=== PATIENT | male | born 1975 ===

== ENCOUNTER 2019-11-26 10:41 | Inpatient (IN) ==
[2019-11-26] MEDS ORDERED: Ondansetron 4 MG/2 ML VIAL IVP PRN (13:40)
[2019-11-26] MEDS ORDERED: Naloxone 0.4 MG/ML INJ IVP PRN ×2 (13:40→20:59)
[2019-11-26] MEDS ORDERED: Ringers Solution, Lactated 1,000 ML IVC SCH (13:45)
[2019-11-26] MEDS ORDERED: *HR* LORazepam 2 MG/ML VIAL IVP PRN ×6 (14:18→20:59)
[2019-11-26] MEDS ORDERED: 0.9 % Sodium Chloride 1,000 ML IVC SCH (14:30)
[2019-11-26] MEDS ORDERED: Thiamine (B-1) 100 MG, Folic Acid 1 MG, MVI, adult with vitamin K 10 ML in 0.9 % Sodi... IVPB SCH (15:00)
[2019-11-26] MEDS ORDERED: Piperacillin/Tazobactam 3.375 GM in 0.9 % Sodium Chloride Mini Bag 100 ML IVPB SCH (16:00)
[2019-11-26] MEDS ORDERED: Morphine Sulfate 2 MG/ML SYRINGE IVP ONE ×3 (16:30→22:15)
[2019-11-26] MEDS ORDERED: *HR* OxyCODONE Immed Rel 5 MG TABLET PO PRN ×2 (17:28→20:59)
[2019-11-26] MEDS ORDERED: Ondansetron 4 MG/2 ML VIAL IVP ONE ×2 (17:28→20:59)
[2019-11-26] MEDS ORDERED: *HR* Meperidine 25 MG/ML SYRINGE IVP PRN ×2 (17:28→20:59)
[2019-11-26] MEDS ORDERED: *HR* Promethazine 25 MG/ML VIAL IVP PRN ×2 (17:28→20:59)
[2019-11-26] MEDS ORDERED: *HR* HYDROmorphone PF 0.5 MG/0.5 ML SYRINGE IVP PRN ×2 (17:28→20:59)
[2019-11-26] MEDS ORDERED: Acetaminophen IV 1,000 MG/100 ML BAG ONE (17:33)
[2019-11-26] MEDS ORDERED: *HR* Rocuronium Bromide 50 MG/5 ML VIAL ONE (17:41)
[2019-11-26] MEDS ORDERED: Dexamethasone 4 MG/ML VIAL ONE (17:41)
[2019-11-26] MEDS ORDERED: Lidocaine HCL 4 ML Topical Solution (Laryng-O-Jet Kit Sterile Pak) TP ONE (17:41)
[2019-11-26] MEDS ORDERED: *HR* FentaNYL (PF) 100 MCG/2 ML VIAL ONE (17:41)
[2019-11-26] MEDS ORDERED: *HR* Succinylcholine 200 MG/10 ML VIAL IVP ONE (17:41)
[2019-11-26] MEDS ORDERED: Ondansetron 4 MG/2 ML VIAL ONE (17:41)
[2019-11-26] MEDS ORDERED: *HR* Midazolam HCl 2 MG/2 ML VIAL ONE (17:41)
[2019-11-26] MEDS ORDERED: Lidocaine -MPF 2% 2 ML VIAL ONE (17:41)
[2019-11-26] MEDS ORDERED: *HR* Propofol 200 MG/20 ML VIAL IVP ONE (17:42)
[2019-11-26] MEDS ORDERED: *HR* HYDROMORPHONE 2 MG/ML VIAL ONE (18:47)
[2019-11-26 21:26] LABS: Basophils # 0.1 K/mcL (0.0-0.2); Basophils % 0.3 %; Eosinophils # 0.1 K/mcL (0.0-0.6); Eosinophils % 0.6 %; Hematocrit 39.1 % (37.5-50.1); Hemoglobin 13.1 g/dL (12.9-16.9); Immature Granulocytes % 1.7 % (0-4); Lymphocytes # 0.7 K/mcL (0.6-4.6); Lymphocytes % 3.8 %; Mean Corpuscular HGB Conc 33.5 g/dL (31.6-35.5); Mean Corpuscular Hemoglobin 31.6 pg (28.0-33.3); Mean Corpuscular Volume 94.4 fL (83.0-100.0); Mean Platelet Volume 10.6 fL (9.4-12.4); Monocytes # 0.9 K/mcL (0.0-1.3); Monocytes % 4.7 %; Platelet Count 160 K/mcL (140-400); Red Blood Count 4.14 M/mcL (4.19-5.50); Red Cell Distribution Width 12.9 % (11.5-14.5); Segmented Neutrophils % 88.9 %; White Blood Count 18.4 K/mcL (4.3-11.1)
[2019-11-26 21:28] LABS: INR 1.2; Prothrombin Time 13.9 Seconds (9.4-12.1)
[2019-11-26 21:31] LABS: Neutrophils # 16.4 K/mcL (1.6-8.9)
[2019-11-26 21:36] LABS: BUN/Creatinine Ratio 11 (6-26); Blood Urea Nitrogen 11 mg/dL (6-20); Calcium 8.2 mg/dL (8.6-10.3); Carbon Dioxide 18 mEq/L (23-29); Chloride 103 mEq/L (98-107); Glucose 117 mg/dL (70-105); Osmolality,Calculated 274 (280-300); Sodium 132 mEq/L (136-145); eGFR For African Americans > 60 (> 60); eGFR For Non-African Americans > 60 (> 60)
[2019-11-26] MEDS: Budesonide/Formoterol 160/4.5 1 PUFF INH IH SCH (21:56)
[2019-11-26] MEDS ORDERED: Budesonide/Formoterol 160/4.5 1 PUFF INH IH SCH (22:00)
[2019-11-26] MEDS: 0.9 % Sodium Chloride 1,000 ML IVC SCH (22:10)
[2019-11-26] MEDS: Acetaminophen IV 1,000 MG/100 ML BAG IVPB SCH (23:55)
[2019-11-26] MEDS: Piperacillin/Tazobactam 3.375 GM in 0.9 % Sodium Chloride Mini Bag 100 ML IVPB SCH (23:55)
[2019-11-27] MEDS ORDERED: Acetaminophen IV 1,000 MG/100 ML BAG IVPB SCH
[2019-11-27 05:55] LABS: Basophils % 0.1 %; Eosinophils % 0.1 %; Hematocrit 35.5 % (37.5-50.1); Hemoglobin 11.8 g/dL (12.9-16.9); Lymphocytes # 0.6 K/mcL (0.6-4.6); Lymphocytes % 3.6 %; Mean Corpuscular HGB Conc 33.2 g/dL (31.6-35.5); Mean Corpuscular Hemoglobin 31.4 pg (28.0-33.3); Mean Corpuscular Volume 94.4 fL (83.0-100.0); Mean Platelet Volume 10.7 fL (9.4-12.4); Monocytes # 0.7 K/mcL (0.0-1.3); Monocytes % 3.9 %; Neutrophils # 15.9 K/mcL (1.6-8.9); Platelet Count 165 K/mcL (140-400); Red Blood Count 3.76 M/mcL (4.19-5.50); Red Cell Distribution Width 12.9 % (11.5-14.5); Segmented Neutrophils % 91.3 %; White Blood Count 17.4 K/mcL (4.3-11.1)
[2019-11-27] MEDS ORDERED: *HR* Enoxaparin 40 MG/0.4 ML SYRINGE SQ SCH ×2 (06:00)
[2019-11-27] MEDS: Acetaminophen IV 1,000 MG/100 ML BAG IVPB SCH ×3 (06:03→17:51)
[2019-11-27] MEDS: 0.9 % Sodium Chloride 1,000 ML IVC SCH (06:03)
[2019-11-27 06:15] LABS: Alanine Aminotransferase 46 Units/L (7-52); Albumin 3.1 g/dL (3.5-5.7); Albumin/Globulin Ratio 1.1 (1.1-2.2); Alkaline Phosphatase 63 Units/L (34-104); Aspartate Amino Transferase 47 Units/L (13-39); BUN/Creatinine Ratio 14 (6-26); Bilirubin,Total 1.9 mg/dL (0.3-1.0); Blood Urea Nitrogen 12 mg/dL (6-20); Calcium 8.5 mg/dL (8.6-10.3); Carbon Dioxide 21 mEq/L (23-29); Chloride 103 mEq/L (98-107); Globulin 2.9 g/dL (2.4-3.5); Glucose 139 mg/dL (70-105); Osmolality,Calculated 276 (280-300); Potassium 3.7 mEq/L (3.5-5.1); Sodium 132 mEq/L (136-145); eGFR For African Americans > 60 (> 60); eGFR For Non-African Americans > 60 (> 60)
[2019-11-27] MEDS: allopurinoL 300 MG TABLET PO SCH (08:16)
[2019-11-27] MEDS: Piperacillin/Tazobactam 3.375 GM in 0.9 % Sodium Chloride Mini Bag 100 ML IVPB SCH ×3 (08:17→23:45)
[2019-11-27] MEDS ORDERED: allopurinoL 300 MG TABLET PO SCH (09:00)
[2019-11-27] MEDS: Budesonide/Formoterol 160/4.5 1 PUFF INH IH SCH (10:36)
[2019-11-27] MEDS: lisinopriL 10 MG TABLET PO SCH (11:55)
[2019-11-27] MEDS: Thiamine (B-1) 100 MG, Folic Acid 1 MG, MVI, adult with vitamin K 10 ML in 0.9 % Sodi... IVPB SCH (17:48)
[2019-11-27] MEDS: *HR* Heparin 5,000 UNIT/ML VIAL SQ SCH (17:49)
[2019-11-27] MEDS: Nicotine 21 MG PATCH.TD24 TD SCH (23:44)
[2019-11-28] MEDS: Acetaminophen IV 1,000 MG/100 ML BAG IVPB SCH ×5 (00:22→23:41)
[2019-11-28 02:36] LABS: Basophils % 0.3 %; Eosinophils # 0.3 K/mcL (0.0-0.6); Eosinophils % 1.8 %; Hematocrit 33.7 % (37.5-50.1); Hemoglobin 11.5 g/dL (12.9-16.9); Immature Granulocytes % 1.4 % (0-4); Lymphocytes # 1.3 K/mcL (0.6-4.6); Lymphocytes % 9.2 %; Mean Corpuscular HGB Conc 34.1 g/dL (31.6-35.5); Mean Corpuscular Hemoglobin 32.5 pg (28.0-33.3); Mean Corpuscular Volume 95.2 fL (83.0-100.0); Mean Platelet Volume 10.2 fL (9.4-12.4); Monocytes # 0.7 K/mcL (0.0-1.3); Monocytes % 4.9 %; Neutrophils # 11.7 K/mcL (1.6-8.9); Platelet Count 187 K/mcL (140-400); Red Blood Count 3.54 M/mcL (4.19-5.50); Red Cell Distribution Width 12.8 % (11.5-14.5); Segmented Neutrophils % 82.4 %; White Blood Count 14.3 K/mcL (4.3-11.1)
[2019-11-28 02:59] LABS: BUN/Creatinine Ratio 15 (6-26); Blood Urea Nitrogen 12 mg/dL (6-20); Calcium 8.4 mg/dL (8.6-10.3); Carbon Dioxide 24 mEq/L (23-29); Chloride 101 mEq/L (98-107); Glucose 75 mg/dL (70-105); Magnesium 1.9 mg/dL (1.6-2.6); Osmolality,Calculated 276 (280-300); Phosphorous 2.5 mg/dL (2.7-4.5); Potassium 3.6 mEq/L (3.5-5.1); Sodium 134 mEq/L (136-145); eGFR For African Americans > 60 (> 60); eGFR For Non-African Americans > 60 (> 60)
[2019-11-28] MEDS: *HR* Heparin 5,000 UNIT/ML VIAL SQ SCH ×2 (06:46→17:48)
[2019-11-28] MEDS: allopurinoL 300 MG TABLET PO SCH (09:00)
[2019-11-28] MEDS: lisinopriL 10 MG TABLET PO SCH (09:01)
[2019-11-28] MEDS: Piperacillin/Tazobactam 3.375 GM in 0.9 % Sodium Chloride Mini Bag 100 ML IVPB SCH ×2 (09:02→17:49)
[2019-11-28] MEDS: Ketorolac 15 MG/ML VIAL IVP SCH ×3 (12:09→23:40)
[2019-11-28] MEDS: Thiamine (B-1) 100 MG, Folic Acid 1 MG, MVI, adult with vitamin K 10 ML in 0.9 % Sodi... IVPB SCH (19:11)
[2019-11-28] MEDS: Nicotine 21 MG PATCH.TD24 TD SCH (23:39)
[2019-11-29] MEDS: Piperacillin/Tazobactam 3.375 GM in 0.9 % Sodium Chloride Mini Bag 100 ML IVPB SCH ×2 (01:52→09:01)
[2019-11-29 05:42] LABS: Basophils # 0.1 K/mcL (0.0-0.2); Basophils % 0.6 %; Eosinophils # 0.4 K/mcL (0.0-0.6); Eosinophils % 3.5 %; Hematocrit 33.5 % (37.5-50.1); Hemoglobin 11.6 g/dL (12.9-16.9); Immature Granulocytes % 2.1 % (0-4); Lymphocytes # 1.3 K/mcL (0.6-4.6); Lymphocytes % 11.7 %; Mean Corpuscular HGB Conc 34.6 g/dL (31.6-35.5); Mean Corpuscular Volume 95.4 fL (83.0-100.0); Mean Platelet Volume 10.2 fL (9.4-12.4); Monocytes # 0.7 K/mcL (0.0-1.3); Monocytes % 6.3 %; Neutrophils # 8.1 K/mcL (1.6-8.9); Platelet Count 176 K/mcL (140-400); Red Blood Count 3.51 M/mcL (4.19-5.50); Red Cell Distribution Width 12.9 % (11.5-14.5); Segmented Neutrophils % 75.8 %; White Blood Count 10.7 K/mcL (4.3-11.1)
[2019-11-29 06:01] LABS: BUN/Creatinine Ratio 18 (6-26); Blood Urea Nitrogen 17 mg/dL (6-20); Calcium 8.6 mg/dL (8.6-10.3); Carbon Dioxide 26 mEq/L (23-29); Chloride 100 mEq/L (98-107); Glucose 76 mg/dL (70-105); Magnesium 1.9 mg/dL (1.6-2.6); Osmolality,Calculated 278 (280-300); Phosphorous 3.1 mg/dL (2.7-4.5); Potassium 3.2 mEq/L (3.5-5.1); Sodium 134 mEq/L (136-145); eGFR For African Americans > 60 (> 60); eGFR For Non-African Americans > 60 (> 60)
[2019-11-29] MEDS: Acetaminophen IV 1,000 MG/100 ML BAG IVPB SCH (06:42)
[2019-11-29] MEDS: Ketorolac 15 MG/ML VIAL IVP SCH (06:43)
[2019-11-29] MEDS: *HR* Heparin 5,000 UNIT/ML VIAL SQ SCH ×2 (06:44→17:12)
[2019-11-29] MEDS: allopurinoL 300 MG TABLET PO SCH (09:02)
[2019-11-29] MEDS: lisinopriL 10 MG TABLET PO SCH (09:02)
[2019-11-29] MEDS ORDERED: Acetaminophen IV 1,000 MG/100 ML BAG IVPB PRN (09:27)
[2019-11-29] MEDS: Ketorolac 15 MG/ML VIAL IVP PRN ×2 (12:25→21:02)
[2019-11-29] MEDS ORDERED: Acetaminophen 325 MG TABLET PO PRN (14:58)
[2019-11-29] MEDS ORDERED: Ertapenem 1,000 MG in 0.9 % Sodium Chloride Mini Bag 100 ML IVPB SCH (18:00)
[2019-11-29] MEDS: Ipratropium/Albuterol Neb 3 ML IH SCH (22:21)
[2019-11-29] MEDS: Ondansetron 4 MG/2 ML VIAL IVP PRN (22:32)
[2019-11-30] MEDS: Nicotine 21 MG PATCH.TD24 TD SCH ×2 (03:06→07:48)
[2019-11-30] MEDS: Ipratropium/Albuterol Neb 3 ML IH SCH ×4 (04:12→21:57)
[2019-11-30] MEDS: *HR* Heparin 5,000 UNIT/ML VIAL SQ SCH ×2 (06:07→16:48)
[2019-11-30] MEDS: Ketorolac 15 MG/ML VIAL IVP PRN ×2 (06:08→22:23)
[2019-11-30 07:36] LABS: Hematocrit 36.1 % (37.5-50.1); Hemoglobin 11.9 g/dL (12.9-16.9); Mean Corpuscular Hemoglobin 31.4 pg (28.0-33.3); Mean Corpuscular Volume 95.3 fL (83.0-100.0); Monocytes # 0.9 K/mcL (0.0-1.3); Nucleated Red Blood Cells 0.2 /100 WBC (0); Platelet Count 239 K/mcL (140-400); Red Blood Count 3.79 M/mcL (4.19-5.50); Red Cell Distribution Width 12.8 % (11.5-14.5); White Blood Count 13.2 K/mcL (4.3-11.1)
[2019-11-30] MEDS: Thiamine (B-1) 100 MG TABLET PO SCH (07:47)
[2019-11-30] MEDS: allopurinoL 300 MG TABLET PO SCH (07:47)
[2019-11-30] MEDS: Multivit/Ca/Min/Fe/FA 1 TAB TABLET PO SCH (07:48)
[2019-11-30] MEDS: lisinopriL 10 MG TABLET PO SCH (07:48)
[2019-11-30] MEDS: Folic Acid 1 MG TABLET PO SCH (07:48)
[2019-11-30 07:50] LABS: BUN/Creatinine Ratio 16 (6-26); Blood Urea Nitrogen 13 mg/dL (6-20); Calcium 8.8 mg/dL (8.6-10.3); Carbon Dioxide 28 mEq/L (23-29); Chloride 99 mEq/L (98-107); Glucose 94 mg/dL (70-105); Osmolality,Calculated 276 (280-300); Phosphorous 3.4 mg/dL (2.7-4.5); Potassium 3.3 mEq/L (3.5-5.1); Sodium 133 mEq/L (136-145); eGFR For African Americans > 60 (> 60); eGFR For Non-African Americans > 60 (> 60)
[2019-11-30 08:02] LABS: Eosinophils # 0.1 K/mcL (0.0-0.6); Lymphocytes # 1.3 K/mcL (0.6-4.6); Neutrophils # 10.8 K/mcL (1.6-8.9); Platelet Estimate Normal (Normal)
[2019-11-30] MEDS ORDERED: Fluconazole 400 MG/200 ML 400 MG/200 ML BAG IVPB ONE (10:10)
[2019-11-30] MEDS ORDERED: *HR* OxyCODONE/APAP 7.5/325 TABLET PO PRN (10:13)
[2019-11-30] MEDS ORDERED: Acetaminophen 325 MG TABLET PO PRN (10:17)
[2019-11-30] MEDS: Ibuprofen 600 MG TABLET PO SCH ×3 (10:57→23:42)
[2019-11-30] MEDS: Piperacillin/Tazobactam 3.375 GM in 0.9 % Sodium Chloride Mini Bag 100 ML IVPB SCH ×3 (16:47→23:42)
[2019-12-01] MEDS: Ondansetron 4 MG/2 ML VIAL IVP PRN (03:34)
[2019-12-01] MEDS: Ipratropium/Albuterol Neb 3 ML IH SCH ×4 (03:56→22:15)
[2019-12-01] MEDS: Ibuprofen 600 MG TABLET PO SCH ×2 (06:06→22:16)
[2019-12-01] MEDS: *HR* Heparin 5,000 UNIT/ML VIAL SQ SCH ×2 (06:06→17:35)
[2019-12-01 06:43] LABS: Hemoglobin 10.7 g/dL (12.9-16.9); Mean Corpuscular HGB Conc 33.4 g/dL (31.6-35.5); Mean Corpuscular Hemoglobin 32.1 pg (28.0-33.3); Mean Corpuscular Volume 96.1 fL (83.0-100.0); Mean Platelet Volume 9.6 fL (9.4-12.4); Nucleated Red Blood Cells 0.2 /100 WBC (0); Platelet Count 281 K/mcL (140-400); Red Blood Count 3.33 M/mcL (4.19-5.50); Red Cell Distribution Width 13.1 % (11.5-14.5); White Blood Count 14.6 K/mcL (4.3-11.1)
[2019-12-01 07:10] LABS: BUN/Creatinine Ratio 11 (6-26); Blood Urea Nitrogen 8 mg/dL (6-20); Calcium 8.6 mg/dL (8.6-10.3); Carbon Dioxide 24 mEq/L (23-29); Chloride 102 mEq/L (98-107); Glucose 131 mg/dL (70-105); Osmolality,Calculated 282 (280-300); Potassium 3.6 mEq/L (3.5-5.1); Sodium 136 mEq/L (136-145); eGFR For African Americans > 60 (> 60); eGFR For Non-African Americans > 60 (> 60)
[2019-12-01] MEDS: Piperacillin/Tazobactam 3.375 GM in 0.9 % Sodium Chloride Mini Bag 100 ML IVPB SCH ×2 (08:47→17:34)
[2019-12-01] MEDS: Nicotine 21 MG PATCH.TD24 TD SCH (08:48)
[2019-12-01] MEDS: Fluconazole 400 MG/200 ML 400 MG/200 ML BAG IVPB SCH (08:48)
[2019-12-01] MEDS: Folic Acid 1 MG TABLET PO SCH (08:49)
[2019-12-01] MEDS: Multivit/Ca/Min/Fe/FA 1 TAB TABLET PO SCH (08:49)
[2019-12-01] MEDS: lisinopriL 10 MG TABLET PO SCH (08:49)
[2019-12-01] MEDS: polyethylene glycoL 3350 17 GM POWD.PACK PO SCH (08:49)
[2019-12-01] MEDS: Thiamine (B-1) 100 MG TABLET PO SCH (08:49)
[2019-12-01] MEDS: allopurinoL 300 MG TABLET PO SCH (08:49)
[2019-12-01] MEDS ORDERED: Fluconazole 200 MG/100 ML 200 MG/100 ML BAG IVPB SCH (09:00)
[2019-12-01 09:35] LABS: Anisocytosis 1+ (Not Present); Eosinophils # 0.3 K/mcL (0.0-0.6); Lymphocytes # 2.6 K/mcL (0.6-4.6); Monocytes # 1.5 K/mcL (0.0-1.3); Neutrophils # 9.9 K/mcL (1.6-8.9); Platelet Estimate Normal (Normal)
[2019-12-01] MEDS ORDERED: Isovue-370 500 ML BOTTLE IVP ONE (11:21)
[2019-12-01] MEDS: Ketorolac 15 MG/ML VIAL IVP PRN (21:09)
[2019-12-02] MEDS: Piperacillin/Tazobactam 3.375 GM in 0.9 % Sodium Chloride Mini Bag 100 ML IVPB SCH ×3 (01:05→16:21)
[2019-12-02] MEDS: Ipratropium/Albuterol Neb 3 ML IH SCH ×4 (03:42→22:15)
[2019-12-02] MEDS: *HR* Heparin 5,000 UNIT/ML VIAL SQ SCH ×2 (06:04→20:51)
[2019-12-02] MEDS: Ondansetron 4 MG/2 ML VIAL IVP PRN ×3 (09:16→23:00)
[2019-12-02] MEDS: Fluconazole 400 MG/200 ML 400 MG/200 ML BAG IVPB SCH (09:21)
[2019-12-02] MEDS: polyethylene glycoL 3350 17 GM POWD.PACK PO SCH (09:23)
[2019-12-02] MEDS: Multivit/Ca/Min/Fe/FA 1 TAB TABLET PO SCH (09:24)
[2019-12-02] MEDS: lisinopriL 10 MG TABLET PO SCH (09:24)
[2019-12-02] MEDS: allopurinoL 300 MG TABLET PO SCH (09:24)
[2019-12-02] MEDS: Thiamine (B-1) 100 MG TABLET PO SCH (09:24)
[2019-12-02] MEDS: Folic Acid 1 MG TABLET PO SCH (09:24)
[2019-12-02] MEDS: Nicotine 21 MG PATCH.TD24 TD SCH (09:25)
[2019-12-02 11:02] LABS: Hematocrit 36.4 % (37.5-50.1); Hemoglobin 12.2 g/dL (12.9-16.9); Mean Corpuscular HGB Conc 33.5 g/dL (31.6-35.5); Mean Corpuscular Hemoglobin 32.4 pg (28.0-33.3); Mean Corpuscular Volume 96.6 fL (83.0-100.0); Mean Platelet Volume 9.4 fL (9.4-12.4); Nucleated Red Blood Cells 0.4 /100 WBC (0); Platelet Count 387 K/mcL (140-400); Red Blood Count 3.77 M/mcL (4.19-5.50); Red Cell Distribution Width 13.3 % (11.5-14.5); White Blood Count 16.4 K/mcL (4.3-11.1)
[2019-12-02 11:23] LABS: BUN/Creatinine Ratio 6 (6-26); Blood Urea Nitrogen 5 mg/dL (6-20); Calcium 8.8 mg/dL (8.6-10.3); Carbon Dioxide 25 mEq/L (23-29); Chloride 98 mEq/L (98-107); Glucose 93 mg/dL (70-105); Osmolality,Calculated 273 (280-300); Potassium 3.7 mEq/L (3.5-5.1); Sodium 133 mEq/L (136-145); eGFR For African Americans > 60 (> 60); eGFR For Non-African Americans > 60 (> 60)
[2019-12-02 11:54] LABS: Eosinophils # 0.3 K/mcL (0.0-0.6); Neutrophils # 12.1 K/mcL (1.6-8.9); Platelet Estimate Normal (Normal)
[2019-12-02] MEDS: *HR* OxyCODONE/APAP 10/325 TABLET PO PRN (13:42)
[2019-12-02] MEDS ORDERED: *HR* Promethazine 25 MG/ML VIAL IVP PRN (16:43)
[2019-12-03] MEDS: Piperacillin/Tazobactam 3.375 GM in 0.9 % Sodium Chloride Mini Bag 100 ML IVPB SCH ×4 (00:20→23:35)
[2019-12-03] MEDS: Ipratropium/Albuterol Neb 3 ML IH SCH ×4 (03:59→21:52)
[2019-12-03] MEDS: *HR* Heparin 5,000 UNIT/ML VIAL SQ SCH ×2 (05:31→17:52)
[2019-12-03 07:44] LABS: Hematocrit 33.2 % (37.5-50.1); Hemoglobin 10.9 g/dL (12.9-16.9); Mean Corpuscular HGB Conc 32.8 g/dL (31.6-35.5); Mean Corpuscular Hemoglobin 31.4 pg (28.0-33.3); Mean Corpuscular Volume 95.7 fL (83.0-100.0); Mean Platelet Volume 9.2 fL (9.4-12.4); Monocytes # 0.6 K/mcL (0.0-1.3); Nucleated Red Blood Cells 0.2 /100 WBC (0); Platelet Count 452 K/mcL (140-400); Red Blood Count 3.47 M/mcL (4.19-5.50); Red Cell Distribution Width 13.6 % (11.5-14.5); White Blood Count 14.5 K/mcL (4.3-11.1)
[2019-12-03] MEDS ORDERED: cefOXitin 1,000 MG, 0.9 % Sodium Chloride 1,000 ML IR ONE (08:00)
[2019-12-03 08:05] LABS: BUN/Creatinine Ratio 9 (6-26); Blood Urea Nitrogen 9 mg/dL (6-20); Calcium 8.8 mg/dL (8.6-10.3); Carbon Dioxide 28 mEq/L (23-29); Chloride 96 mEq/L (98-107); Glucose 124 mg/dL (70-105); Osmolality,Calculated 278 (280-300); Potassium 3.9 mEq/L (3.5-5.1); Sodium 134 mEq/L (136-145); eGFR For African Americans > 60 (> 60); eGFR For Non-African Americans > 60 (> 60)
[2019-12-03 08:26] LABS: Lymphocytes # 1.7 K/mcL (0.6-4.6); Neutrophils # 12.2 K/mcL (1.6-8.9); Platelet Estimate Increased (Normal)
[2019-12-03] MEDS: Fluconazole 400 MG/200 ML 400 MG/200 ML BAG IVPB SCH (11:11)
[2019-12-03] MEDS: Thiamine (B-1) 100 MG TABLET PO SCH (11:12)
[2019-12-03] MEDS: Nicotine 21 MG PATCH.TD24 TD SCH (11:13)
[2019-12-03] MEDS: Folic Acid 1 MG TABLET PO SCH (11:14)
[2019-12-03] MEDS: polyethylene glycoL 3350 17 GM POWD.PACK PO SCH (11:14)
[2019-12-03] MEDS: lisinopriL 10 MG TABLET PO SCH (11:14)
[2019-12-03] MEDS: Multivit/Ca/Min/Fe/FA 1 TAB TABLET PO SCH (11:15)
[2019-12-03] MEDS: allopurinoL 300 MG TABLET PO SCH (11:15)
[2019-12-03] MEDS: *HR* OxyCODONE/APAP 10/325 TABLET PO PRN ×2 (11:39→17:51)
[2019-12-03] MEDS ORDERED: Ketorolac 15 MG/ML VIAL IVP PRN (15:45)
[2019-12-04] MEDS: Ipratropium/Albuterol Neb 3 ML IH SCH ×4 (03:39→22:04)
[2019-12-04] MEDS: *HR* Heparin 5,000 UNIT/ML VIAL SQ SCH ×2 (05:38→17:27)
[2019-12-04] MEDS: Folic Acid 1 MG TABLET PO SCH (09:38)
[2019-12-04] MEDS: Multivit/Ca/Min/Fe/FA 1 TAB TABLET PO SCH (09:38)
[2019-12-04] MEDS: Thiamine (B-1) 100 MG TABLET PO SCH (09:38)
[2019-12-04] MEDS: allopurinoL 300 MG TABLET PO SCH (09:38)
[2019-12-04] MEDS: Nicotine 21 MG PATCH.TD24 TD SCH (09:39)
[2019-12-04] MEDS: Fluconazole 400 MG/200 ML 400 MG/200 ML BAG IVPB SCH (09:39)
[2019-12-04] MEDS: Piperacillin/Tazobactam 3.375 GM in 0.9 % Sodium Chloride Mini Bag 100 ML IVPB SCH ×3 (09:39→23:22)
[2019-12-04] MEDS: lisinopriL 10 MG TABLET PO SCH (09:39)
[2019-12-04] MEDS: Ondansetron 4 MG/2 ML VIAL IVP PRN (11:26)
[2019-12-04 13:59] LABS: Hemoglobin 10.4 g/dL (12.9-16.9); Mean Corpuscular HGB Conc 33.5 g/dL (31.6-35.5); Mean Corpuscular Hemoglobin 31.4 pg (28.0-33.3); Mean Corpuscular Volume 93.7 fL (83.0-100.0); Mean Platelet Volume 9.4 fL (9.4-12.4); Platelet Count 524 K/mcL (140-400); Red Blood Count 3.31 M/mcL (4.19-5.50); Red Cell Distribution Width 13.1 % (11.5-14.5); White Blood Count 15.4 K/mcL (4.3-11.1)
[2019-12-04 14:21] LABS: BUN/Creatinine Ratio 8 (6-26); Blood Urea Nitrogen 6 mg/dL (6-20); Calcium 8.9 mg/dL (8.6-10.3); Carbon Dioxide 25 mEq/L (23-29); Chloride 96 mEq/L (98-107); Glucose 101 mg/dL (70-105); Osmolality,Calculated 270 (280-300); Potassium 4.3 mEq/L (3.5-5.1); Sodium 131 mEq/L (136-145); eGFR For African Americans > 60 (> 60); eGFR For Non-African Americans > 60 (> 60)
[2019-12-05] MEDS: Ipratropium/Albuterol Neb 3 ML IH SCH (03:40)
[2019-12-05 04:53] LABS: Hematocrit 29.6 % (37.5-50.1); Hemoglobin 10.1 g/dL (12.9-16.9); Mean Corpuscular HGB Conc 34.1 g/dL (31.6-35.5); Mean Corpuscular Hemoglobin 32.5 pg (28.0-33.3); Mean Corpuscular Volume 95.2 fL (83.0-100.0); Mean Platelet Volume 9.9 fL (9.4-12.4); Platelet Count 480 K/mcL (140-400); Red Blood Count 3.11 M/mcL (4.19-5.50); Red Cell Distribution Width 12.8 % (11.5-14.5); White Blood Count 14.3 K/mcL (4.3-11.1)
[2019-12-05 05:00] LABS: BUN/Creatinine Ratio 6 (6-26); Blood Urea Nitrogen 5 mg/dL (6-20); Calcium 8.2 mg/dL (8.6-10.3); Carbon Dioxide 26 mEq/L (23-29); Chloride 97 mEq/L (98-107); Glucose 101 mg/dL (70-105); Osmolality,Calculated 271 (280-300); Potassium 3.8 mEq/L (3.5-5.1); Sodium 132 mEq/L (136-145); eGFR For African Americans > 60 (> 60); eGFR For Non-African Americans > 60 (> 60)
[2019-12-05] MEDS: *HR* Heparin 5,000 UNIT/ML VIAL SQ SCH ×2 (05:33→18:44)
[2019-12-05] MEDS: Folic Acid 1 MG TABLET PO SCH (08:12)
[2019-12-05] MEDS: Thiamine (B-1) 100 MG TABLET PO SCH (08:12)
[2019-12-05] MEDS: Multivit/Ca/Min/Fe/FA 1 TAB TABLET PO SCH (08:13)
[2019-12-05] MEDS: allopurinoL 300 MG TABLET PO SCH (08:13)
[2019-12-05] MEDS: lisinopriL 10 MG TABLET PO SCH (08:13)
[2019-12-05] MEDS: *HR* OxyCODONE/APAP 10/325 TABLET PO PRN ×3 (08:13→20:03)
[2019-12-05] MEDS: Nicotine 21 MG PATCH.TD24 TD SCH (08:13)
[2019-12-05] MEDS: Ondansetron 4 MG/2 ML VIAL IVP PRN (08:15)
[2019-12-05] MEDS: Fluconazole 400 MG/200 ML 400 MG/200 ML BAG IVPB SCH (08:18)
[2019-12-05] MEDS: Piperacillin/Tazobactam 3.375 GM in 0.9 % Sodium Chloride Mini Bag 100 ML IVPB SCH ×2 (08:22→15:36)
[2019-12-05] MEDS ORDERED: Ipratropium/Albuterol Neb 3 ML IH PRN (09:53)
[2019-12-06] MEDS: Piperacillin/Tazobactam 3.375 GM in 0.9 % Sodium Chloride Mini Bag 100 ML IVPB SCH ×2 (00:05→10:32)
[2019-12-06] MEDS: Ondansetron 4 MG/2 ML VIAL IVP PRN (04:06)
[2019-12-06] MEDS: *HR* Heparin 5,000 UNIT/ML VIAL SQ SCH (05:41)
[2019-12-06] MEDS: *HR* OxyCODONE/APAP 10/325 TABLET PO PRN ×2 (05:45→12:01)
[2019-12-06 07:55] LABS: Basophils # 0.1 K/mcL (0.0-0.2); Basophils % 0.7 %; Eosinophils # 0.3 K/mcL (0.0-0.6); Eosinophils % 2.5 %; Hematocrit 32.1 % (37.5-50.1); Hemoglobin 10.5 g/dL (12.9-16.9); Immature Granulocytes % 3.7 % (0-4); Lymphocytes # 2.4 K/mcL (0.6-4.6); Mean Corpuscular HGB Conc 32.7 g/dL (31.6-35.5); Mean Corpuscular Hemoglobin 31.2 pg (28.0-33.3); Mean Corpuscular Volume 95.3 fL (83.0-100.0); Mean Platelet Volume 9.4 fL (9.4-12.4); Monocytes # 0.9 K/mcL (0.0-1.3); Neutrophils # 9.1 K/mcL (1.6-8.9); Platelet Count 735 K/mcL (140-400); Red Blood Count 3.37 M/mcL (4.19-5.50); Red Cell Distribution Width 12.8 % (11.5-14.5); Segmented Neutrophils % 68.1 %; White Blood Count 13.4 K/mcL (4.3-11.1)
[2019-12-06 08:12] LABS: BUN/Creatinine Ratio 5 (6-26); Blood Urea Nitrogen 4 mg/dL (6-20); Calcium 9.3 mg/dL (8.6-10.3); Carbon Dioxide 31 mEq/L (23-29); Chloride 94 mEq/L (98-107); Glucose 111 mg/dL (70-105); Osmolality,Calculated 272 (280-300); Potassium 3.8 mEq/L (3.5-5.1); Sodium 132 mEq/L (136-145); eGFR For African Americans > 60 (> 60); eGFR For Non-African Americans > 60 (> 60)
[2019-12-06] MEDS: Multivit/Ca/Min/Fe/FA 1 TAB TABLET PO SCH (10:29)
[2019-12-06] MEDS: lisinopriL 10 MG TABLET PO SCH (10:30)
[2019-12-06] MEDS: allopurinoL 300 MG TABLET PO SCH (10:30)
[2019-12-06] MEDS: Folic Acid 1 MG TABLET PO SCH (10:30)
[2019-12-06] MEDS: Thiamine (B-1) 100 MG TABLET PO SCH (10:30)
[2019-12-06] MEDS: Nicotine 21 MG PATCH.TD24 TD SCH (10:31)
[2019-12-06] MEDS: Fluconazole 400 MG/200 ML 400 MG/200 ML BAG IVPB SCH (10:32)
[2019-12-06] MEDS ORDERED: Colchicine 0.6 MG TABLET PO ONE ×2 (12:23→13:30)
[2019-12-06 14:34] VITALS: BP 138/90
[2019-12-06] MEDS ORDERED: Mirtazapine 15 MG TABLET PO SCH (21:00)
[2019-12-07] MEDS ORDERED: Fluconazole 100 MG TABLET PO SCH (09:00)
== END 2019-12-06 17:47 | disposition home health service (06) | DRG 853 ==
LOC: 3ANU → SUATTDRO 15:03
PROVIDERS: ADMIT Internal Medicine; ATTEND Internal Medicine

== ENCOUNTER 2019-12-23 14:55 | Inpatient (IN) ==
[2019-12-23] MEDS ORDERED: Isovue-370 500 ML BOTTLE IVP ONE (15:28)
[2019-12-23 16:17] LABS: Basophils % 0.3 %; Eosinophils % 0.2 %; Hematocrit 36.3 % (37.5-50.1); Hemoglobin 11.9 g/dL (12.9-16.9); Immature Granulocytes % 1.2 % (0-4); Lymphocytes # 2.6 K/mcL (0.6-4.6); Mean Corpuscular HGB Conc 32.8 g/dL (31.6-35.5); Mean Corpuscular Hemoglobin 30.4 pg (28.0-33.3); Mean Corpuscular Volume 92.8 fL (83.0-100.0); Mean Platelet Volume 9.9 fL (9.4-12.4); Monocytes # 0.8 K/mcL (0.0-1.3); Monocytes % 6.2 %; Neutrophils # 9.3 K/mcL (1.6-8.9); Platelet Count 461 K/mcL (140-400); Red Blood Count 3.91 M/mcL (4.19-5.50); Red Cell Distribution Width 12.8 % (11.5-14.5); Segmented Neutrophils % 72.1 %; White Blood Count 12.8 K/mcL (4.3-11.1)
[2019-12-23 16:37] LABS: Alanine Aminotransferase 25 Units/L (7-52); Albumin 4.3 g/dL (3.5-5.7); Alkaline Phosphatase 102 Units/L (34-104); Aspartate Amino Transferase 20 Units/L (13-39); BUN/Creatinine Ratio 16 (6-26); Bilirubin,Direct 0.1 mg/dL (0.0-0.2); Bilirubin,Indirect 0.3 mg/dL (0.0-1.0); Bilirubin,Total 0.4 mg/dL (0.3-1.0); Blood Urea Nitrogen 16 mg/dL (6-20); Calcium 10.2 mg/dL (8.6-10.3); Carbon Dioxide 21 mEq/L (23-29); Chloride 99 mEq/L (98-107); Globulin 4.1 g/dL (2.4-3.5); Glucose 124 mg/dL (70-105); Lipase 20 Units/L (11-82); Osmolality,Calculated 277 (280-300); Potassium 3.6 mEq/L (3.5-5.1); Sodium 132 mEq/L (136-145); Total Protein 8.4 g/dL (6.4-8.9); eGFR For African Americans > 60 (> 60); eGFR For Non-African Americans > 60 (> 60)
[2019-12-23] MEDS ORDERED: *HR* OxyCODONE/APAP 5/325 TABLET PO ONE (17:02)
[2019-12-23] MEDS ORDERED: *HR* HYDROmorphone (PF) 1 MG/ML SYRINGE IVP ONE (17:04)
[2019-12-23] MEDS ORDERED: Morphine Sulfate 2 MG/ML SYRINGE IVP ONE (20:36)
[2019-12-23] MEDS ORDERED: Ondansetron 4 MG/2 ML VIAL IVP PRN (20:39)
[2019-12-23] MEDS: 0.9 % Sodium Chloride 1,000 ML IVC SCH (22:27)
[2019-12-24] MEDS: Nicotine 21 MG PATCH.TD24 TD SCH (00:43)
[2019-12-24] MEDS: Morphine Sulfate 2 MG/ML SYRINGE IVP PRN ×3 (00:43→21:06)
[2019-12-24] MEDS: Piperacillin/Tazobactam 3.375 GM in 0.9 % Sodium Chloride Mini Bag 100 ML IVPB SCH ×3 (00:44→17:04)
[2019-12-24] MEDS: *HR* Heparin 5,000 UNIT/ML VIAL SQ SCH ×2 (06:12→17:06)
[2019-12-24] MEDS: 0.9 % Sodium Chloride 1,000 ML IVC SCH ×2 (06:12→13:52)
[2019-12-24] MEDS: Pantoprazole 40 MG VIAL IVP SCH (07:36)
[2019-12-25] MEDS: Piperacillin/Tazobactam 3.375 GM in 0.9 % Sodium Chloride Mini Bag 100 ML IVPB SCH ×4 (00:52→23:19)
[2019-12-25] MEDS: Nicotine 21 MG PATCH.TD24 TD SCH ×2 (00:53→23:19)
[2019-12-25] MEDS: 0.9 % Sodium Chloride 1,000 ML IVC SCH ×4 (00:53→21:55)
[2019-12-25] MEDS: *HR* Heparin 5,000 UNIT/ML VIAL SQ SCH ×2 (05:45→18:48)
[2019-12-25] MEDS: Pantoprazole 40 MG VIAL IVP SCH (08:03)
[2019-12-25] MEDS ORDERED: Acetaminophen IV 1,000 MG/100 ML INFUS..BTL IVPB ONE (09:30)
[2019-12-25] MEDS ORDERED: *HR* Midazolam HCl 2 MG/2 ML VIAL ONE (14:05)
[2019-12-25] MEDS ORDERED: *HR* Propofol 200 MG/20 ML VIAL IVP ONE (14:05)
[2019-12-25] MEDS ORDERED: Dexamethasone 4 MG/ML VIAL ONE (14:05)
[2019-12-25] MEDS ORDERED: Lidocaine -MPF 2% 2 ML VIAL ONE (14:05)
[2019-12-25] MEDS ORDERED: *HR* Succinylcholine 200 MG/10 ML VIAL IVP ONE (14:05)
[2019-12-25] MEDS ORDERED: *HR* FentaNYL (PF) 100 MCG/2 ML VIAL ONE (14:05)
[2019-12-25] MEDS ORDERED: Lidocaine HCL 4 ML Topical Solution (Laryng-O-Jet Kit Sterile Pak) TP ONE (14:05)
[2019-12-25] MEDS ORDERED: Ondansetron 4 MG/2 ML VIAL ONE (14:05)
[2019-12-25] MEDS ORDERED: *HR* PHENYLEPHRINE 1,000 MCG/10 ML SYRINGE IVP ONE (14:05)
[2019-12-25] MEDS ORDERED: *HR* Rocuronium Bromide 50 MG/5 ML VIAL ONE (14:05)
[2019-12-25] MEDS ORDERED: Ondansetron 4 MG/2 ML VIAL IVP ONE ×2 (14:07→18:01)
[2019-12-25] MEDS ORDERED: *HR* OxyCODONE Immed Rel 5 MG TABLET PO PRN (14:07)
[2019-12-25] MEDS ORDERED: *HR* Meperidine 25 MG/ML SYRINGE IVP PRN (14:07)
[2019-12-25] MEDS ORDERED: *HR* Promethazine 25 MG/ML VIAL IVP PRN (14:07)
[2019-12-25] MEDS ORDERED: *HR* HYDROMORPHONE 2 MG/ML VIAL ONE ×2 (14:59→15:29)
[2019-12-25] MEDS: *HR* HYDROmorphone PF 0.5 MG/0.5 ML SYRINGE IVP PRN ×2 (16:25→16:50)
[2019-12-25] MEDS: *HR* Labetalol 20 MG/4 ML SYRINGE IVP PRN ×2 (16:40→17:04)
[2019-12-25] MEDS ORDERED: *HR* Labetalol 20 MG/4 ML SYRINGE IVP ONE (16:41)
[2019-12-25] MEDS: Morphine Sulfate 2 MG/ML SYRINGE IVP PRN ×2 (21:50→23:58)
[2019-12-26] MEDS ORDERED: Ketorolac 30 MG/ML VIAL IVP ONE (00:26)
[2019-12-26] MEDS: Acetaminophen IV 1,000 MG/100 ML INFUS..BTL IVPB SCH ×4 (01:01→23:52)
[2019-12-26] MEDS: Morphine Sulfate 2 MG/ML SYRINGE IVP PRN ×6 (03:00→23:48)
[2019-12-26] MEDS: *HR* Heparin 5,000 UNIT/ML VIAL SQ SCH ×2 (05:28→17:48)
[2019-12-26] MEDS: 0.9 % Sodium Chloride 1,000 ML IVC SCH ×3 (06:09→20:35)
[2019-12-26 07:33] LABS: Basophils # 0.1 K/mcL (0.0-0.2); Basophils % 0.6 %; Eosinophils # 0.1 K/mcL (0.0-0.6); Eosinophils % 0.3 %; Hematocrit 27.4 % (37.5-50.1); Immature Granulocytes % 2.5 % (0-4); Lymphocytes # 3.6 K/mcL (0.6-4.6); Mean Corpuscular HGB Conc 33.9 g/dL (31.6-35.5); Mean Corpuscular Hemoglobin 31.6 pg (28.0-33.3); Mean Corpuscular Volume 93.2 fL (83.0-100.0); Mean Platelet Volume 10.3 fL (9.4-12.4); Monocytes # 1.7 K/mcL (0.0-1.3); Monocytes % 8.1 %; Nucleated Red Blood Cells 0.2 /100 WBC (0); Platelet Count 390 K/mcL (140-400); Red Blood Count 2.94 M/mcL (4.19-5.50); Red Cell Distribution Width 13.2 % (11.5-14.5); Segmented Neutrophils % 71.5 %
[2019-12-26 07:42] LABS: Hemoglobin 9.3 g/dL (12.9-16.9)
[2019-12-26 08:03] LABS: Magnesium 1.4 mg/dL (1.6-2.6)
[2019-12-26] MEDS: Pantoprazole 40 MG VIAL IVP SCH (08:33)
[2019-12-26] MEDS: Piperacillin/Tazobactam 3.375 GM in 0.9 % Sodium Chloride Mini Bag 100 ML IVPB SCH ×3 (08:33→23:54)
[2019-12-26 09:54] LABS: Calcium 8.8 mg/dL (8.6-10.3); Potassium 4.4 mEq/L (3.5-5.1)
[2019-12-26] MEDS ORDERED: 0.9 % Sodium Chloride 1,000 ML IVC ONE (10:00)
[2019-12-26] MEDS: Ipratropium/Albuterol Neb 3 ML IH SCH ×3 (11:15→22:48)
[2019-12-26 19:00] LABS: Bilirubin,Urine Negative (Negative); Blood,Urine Negative (Negative); Clarity,Urine Clear (Clear); Color,Urine Yellow (Yellow); Glucose,Urine (UA) Normal (Normal); Ketones,Urine Negative (Negative); Leukocyte Esterase,Urine Negative (Negative); Nitrite,Urine Negative (Negative); Protein,Urine Trace mg/dL (Neg-Trace); Specific Gravity,Urine > 1.030 (1.010-1.025); Urobilinogen,Urine Normal (Normal)
[2019-12-26 20:20] LABS: Bacteria,Urine Few per hpf (None-Few); Mucus,Urine Few per lpf (None-Few); Sperm,Urine Present (None Seen); WBC,Urine 0-3 per hpf (0-3)
[2019-12-26] MEDS: Ondansetron 4 MG/2 ML VIAL IVP PRN (21:44)
[2019-12-26] MEDS: Nicotine 21 MG PATCH.TD24 TD SCH (23:49)
[2019-12-27] MEDS: Morphine Sulfate 2 MG/ML SYRINGE IVP PRN ×5 (02:02→23:57)
[2019-12-27] MEDS: Ipratropium/Albuterol Neb 3 ML IH SCH ×4 (04:06→21:35)
[2019-12-27] MEDS: 0.9 % Sodium Chloride 1,000 ML IVC SCH ×3 (04:18→20:20)
[2019-12-27] MEDS: *HR* Heparin 5,000 UNIT/ML VIAL SQ SCH (05:04)
[2019-12-27 05:11] LABS: BUN/Creatinine Ratio 12 (6-26); Blood Urea Nitrogen 11 mg/dL (6-20); Calcium 8.1 mg/dL (8.6-10.3); Carbon Dioxide 18 mEq/L (23-29); Chloride 111 mEq/L (98-107); Glucose 86 mg/dL (70-105); Magnesium 1.4 mg/dL (1.6-2.6); Osmolality,Calculated 287 (280-300); Phosphorous 3.4 mg/dL (2.7-4.5); Potassium 3.6 mEq/L (3.5-5.1); Sodium 139 mEq/L (136-145); eGFR For African Americans > 60 (> 60); eGFR For Non-African Americans > 60 (> 60)
[2019-12-27 06:32] LABS: Basophils # 0.1 K/mcL (0.0-0.2); Basophils % 0.8 %; Eosinophils # 0.4 K/mcL (0.0-0.6); Hematocrit 21.2 % (37.5-50.1); Hemoglobin 6.9 g/dL (12.9-16.9); Immature Granulocytes % 4.8 % (0-4); Immature Platelets 4.6 % (1.1-6.1); Lymphocytes % 20.8 %; Mean Corpuscular HGB Conc 32.5 g/dL (31.6-35.5); Mean Corpuscular Hemoglobin 30.9 pg (28.0-33.3); Mean Corpuscular Volume 95.1 fL (83.0-100.0); Mean Platelet Volume 10.9 fL (9.4-12.4); Monocytes % 6.7 %; Neutrophils # 9.3 K/mcL (1.6-8.9); Nucleated Red Blood Cells 0.7 /100 WBC (0); Platelet Count 284 K/mcL (140-400); Red Blood Count 2.23 M/mcL (4.19-5.50); Red Cell Distribution Width 13.6 % (11.5-14.5); Segmented Neutrophils % 63.9 %; White Blood Count 14.5 K/mcL (4.3-11.1)
[2019-12-27] MEDS ORDERED: Isovue-370 500 ML BOTTLE IVP ONE (06:58)
[2019-12-27] MEDS ORDERED: Furosemide 20 MG/2 ML VIAL IVP ONE (07:00)
[2019-12-27] MEDS ORDERED: 0.9 % Sodium Chloride 250 ML IVC SCH (07:00)
[2019-12-27] MEDS ORDERED: *HR* LORazepam 2 MG/ML VIAL IVP PRN (07:12)
[2019-12-27] MEDS: Piperacillin/Tazobactam 3.375 GM in 0.9 % Sodium Chloride Mini Bag 100 ML IVPB SCH ×3 (08:31→23:56)
[2019-12-27] MEDS: Ondansetron 4 MG/2 ML VIAL IVP PRN (08:31)
[2019-12-27] MEDS: Pantoprazole 40 MG VIAL IVP SCH (08:32)
[2019-12-27] MEDS: Acetaminophen IV 1,000 MG/100 ML INFUS..BTL IVPB SCH ×3 (08:32→23:56)
[2019-12-27 11:10] LABS: Hematocrit 20.9 % (37.5-50.1); Hemoglobin 7.1 g/dL (12.9-16.9)
[2019-12-27] MEDS: Nicotine 21 MG PATCH.TD24 TD SCH (23:53)
[2019-12-28] MEDS: Ipratropium/Albuterol Neb 3 ML IH SCH ×4 (03:23→21:35)
[2019-12-28] MEDS: 0.9 % Sodium Chloride 1,000 ML IVC SCH ×2 (04:39→12:30)
[2019-12-28 04:49] LABS: Basophils # 0.1 K/mcL (0.0-0.2); Basophils % 0.5 %; Eosinophils # 0.9 K/mcL (0.0-0.6); Eosinophils % 6.4 %; Hematocrit 19.9 % (37.5-50.1); Hemoglobin 6.5 g/dL (12.9-16.9); Immature Granulocytes % 2.5 % (0-4); Lymphocytes # 2.4 K/mcL (0.6-4.6); Lymphocytes % 17.9 %; Mean Corpuscular HGB Conc 32.7 g/dL (31.6-35.5); Mean Corpuscular Hemoglobin 31.7 pg (28.0-33.3); Mean Corpuscular Volume 97.1 fL (83.0-100.0); Mean Platelet Volume 9.6 fL (9.4-12.4); Monocytes # 0.7 K/mcL (0.0-1.3); Monocytes % 5.1 %; Nucleated Red Blood Cells 0.1 /100 WBC (0); Platelet Count 298 K/mcL (140-400); Red Blood Count 2.05 M/mcL (4.19-5.50); Red Cell Distribution Width 13.5 % (11.5-14.5); Segmented Neutrophils % 67.6 %; White Blood Count 13.4 K/mcL (4.3-11.1)
[2019-12-28 05:10] LABS: BUN/Creatinine Ratio 8 (6-26); Blood Urea Nitrogen 6 mg/dL (6-20); Calcium 8.3 mg/dL (8.6-10.3); Carbon Dioxide 21 mEq/L (23-29); Chloride 107 mEq/L (98-107); Glucose 82 mg/dL (70-105); Magnesium 1.2 mg/dL (1.6-2.6); Osmolality,Calculated 279 (280-300); Phosphorous 2.6 mg/dL (2.7-4.5); Potassium 3.2 mEq/L (3.5-5.1); Sodium 136 mEq/L (136-145); eGFR For African Americans > 60 (> 60); eGFR For Non-African Americans > 60 (> 60)
[2019-12-28] MEDS: Acetaminophen IV 1,000 MG/100 ML INFUS..BTL IVPB SCH (05:59)
[2019-12-28] MEDS: Piperacillin/Tazobactam 3.375 GM in 0.9 % Sodium Chloride Mini Bag 100 ML IVPB SCH ×2 (08:29→17:01)
[2019-12-28] MEDS: Pantoprazole 40 MG VIAL IVP SCH (08:29)
[2019-12-28] MEDS ORDERED: Potassium Phosphate 44 MEQ in 0.9 % Sodium Chloride 250 ML IVPB ONE (12:15)
[2019-12-28] MEDS ORDERED: Furosemide 20 MG/2 ML VIAL IVP ONE (12:24)
[2019-12-28] MEDS ORDERED: Morphine Sulfate 2 MG/ML SYRINGE IVP ONE (12:27)
[2019-12-28] MEDS: allopurinoL 300 MG TABLET PO SCH (12:49)
[2019-12-28] MEDS ORDERED: Iron Sucrose Complex 250 MG in 0.9 % Sodium Chloride 250 ML IVPB SCH (13:00)
[2019-12-28] MEDS: *HR* OxyCODONE Immed Rel 5 MG TABLET PO PRN (14:30)
[2019-12-28] MEDS: Ibuprofen 800 MG TABLET PO SCH (16:59)
[2019-12-28] MEDS ORDERED: Thiamine (B-1) 100 MG, Folic Acid 1 MG, MVI, adult with vitamin K 10 ML in 0.9 % Sodi... IVPB SCH (18:00)
[2019-12-28] MEDS: Budesonide/Formoterol 160/4.5 1 PUFF INH IH SCH (22:50)
[2019-12-29] MEDS: Ibuprofen 800 MG TABLET PO SCH ×2 (00:32→08:19)
[2019-12-29] MEDS: Piperacillin/Tazobactam 3.375 GM in 0.9 % Sodium Chloride Mini Bag 100 ML IVPB SCH ×2 (00:51→08:20)
[2019-12-29] MEDS: Nicotine 21 MG PATCH.TD24 TD SCH (00:52)
[2019-12-29] MEDS: Ipratropium/Albuterol Neb 3 ML IH SCH ×2 (03:27→11:06)
[2019-12-29] MEDS: *HR* OxyCODONE Immed Rel 5 MG TABLET PO PRN (04:37)
[2019-12-29 04:48] LABS: Basophils # 0.1 K/mcL (0.0-0.2); Basophils % 0.5 %; Eosinophils # 0.8 K/mcL (0.0-0.6); Eosinophils % 7.7 %; Hematocrit 19.9 % (37.5-50.1); Hemoglobin 6.7 g/dL (12.9-16.9); Immature Granulocytes % 3.7 % (0-4); Lymphocytes # 2.1 K/mcL (0.6-4.6); Lymphocytes % 20.4 %; Mean Corpuscular HGB Conc 33.7 g/dL (31.6-35.5); Mean Corpuscular Hemoglobin 31.6 pg (28.0-33.3); Mean Corpuscular Volume 93.9 fL (83.0-100.0); Mean Platelet Volume 9.4 fL (9.4-12.4); Monocytes # 0.6 K/mcL (0.0-1.3); Monocytes % 5.8 %; Neutrophils # 6.2 K/mcL (1.6-8.9); Platelet Count 299 K/mcL (140-400); Red Blood Count 2.12 M/mcL (4.19-5.50); Red Cell Distribution Width 13.2 % (11.5-14.5); Segmented Neutrophils % 61.9 %; White Blood Count 10.1 K/mcL (4.3-11.1)
[2019-12-29 05:08] LABS: BUN/Creatinine Ratio 6 (6-26); Blood Urea Nitrogen 4 mg/dL (6-20); Carbon Dioxide 23 mEq/L (23-29); Chloride 104 mEq/L (98-107); Glucose 106 mg/dL (70-105); Osmolality,Calculated 281 (280-300); Sodium 137 mEq/L (136-145); eGFR For African Americans > 60 (> 60); eGFR For Non-African Americans > 60 (> 60)
[2019-12-29] MEDS ORDERED: Potassium Chloride 40 MEQ, Lidocaine 1% 2 ML in 0.9 % Sodium Chloride 500 ML IVPB ONE (07:00)
[2019-12-29 07:05] VITALS: BP 159/90
[2019-12-29] MEDS: allopurinoL 300 MG TABLET PO SCH (08:20)
[2019-12-29] MEDS: Pantoprazole 40 MG VIAL IVP SCH (08:21)
[2019-12-29] MEDS ORDERED: lisinopriL 10 MG TABLET PO SCH (09:00)
[2019-12-29] MEDS: Budesonide/Formoterol 160/4.5 1 PUFF INH IH SCH (11:06)
== END 2019-12-29 12:24 | disposition home health service (06) | DRG 330 ==
LOC: EMEROOARM 14:55 → 3ANU 14:55
PROVIDERS: ADMIT Surgery; ATTEND Surgery

== ENCOUNTER 2020-04-03 06:13 | Inpatient (IN) ==
[2020-04-03] MEDS ORDERED: cefOXitin 2,000 MG in Water for inj. (sterile) 20 ML IVP ONE (06:28)
[2020-04-03] MEDS ORDERED: Ringers Solution, Lactated 1,000 ML IVC SCH (06:30)
[2020-04-03] MEDS ORDERED: Ondansetron 4 MG/2 ML VIAL ONE (06:47)
[2020-04-03] MEDS ORDERED: Lidocaine HCL 4 ML Topical Solution (Laryng-O-Jet Kit Sterile Pak) TP ONE ×2 (06:47→06:48)
[2020-04-03] MEDS ORDERED: *HR* Rocuronium Bromide 50 MG/5 ML VIAL ONE ×2 (06:47→08:18)
[2020-04-03] MEDS ORDERED: Dexamethasone 4 MG/ML VIAL ONE (06:47)
[2020-04-03] MEDS ORDERED: Lidocaine -MPF 2% 2 ML VIAL ONE (06:47)
[2020-04-03] MEDS ORDERED: *HR* Midazolam HCl 2 MG/2 ML VIAL ONE (06:53)
[2020-04-03] MEDS ORDERED: *HR* FentaNYL (PF) 100 MCG/2 ML VIAL ONE (06:53)
[2020-04-03] MEDS ORDERED: *HR* Propofol 200 MG/20 ML VIAL IVP ONE (06:54)
[2020-04-03] MEDS ORDERED: *HR* HYDROmorphone (PF) 1 MG/ML SYRINGE IVP PRN (06:55)
[2020-04-03] MEDS ORDERED: Ondansetron 4 MG/2 ML VIAL IVP PRN ×2 (06:55→13:10)
[2020-04-03] MEDS ORDERED: Promethazine Syrup 6.25 MG/5 ML PO PRN (06:55)
[2020-04-03] MEDS ORDERED: *HR* Labetalol 20 MG/4 ML SYRINGE IVP PRN (06:55)
[2020-04-03] MEDS ORDERED: Famotidine 20 MG/2 ML VIAL IVP ONE (07:00)
[2020-04-03] MEDS ORDERED: *HR* Vasopressin 20 UNIT/ML VIAL ONE (07:30)
[2020-04-03] MEDS ORDERED: *HR* Magnesium Sulfate 1 GM/2 ML VIAL ONE (07:31)
[2020-04-03] MEDS ORDERED: *HR* HYDROMORPHONE 2 MG/ML VIAL ONE (08:43)
[2020-04-03] MEDS ORDERED: *HR* Labetalol 20 MG/4 ML SYRINGE IVP ONE (09:19)
[2020-04-03] MEDS ORDERED: Sugammadex Sodium 200 MG/2 ML VIAL IV ONE (09:54)
[2020-04-03] MEDS ORDERED: Naloxone 0.4 MG/ML INJ IVP PRN (13:10)
[2020-04-03] MEDS: 0.9 % Sodium Chloride 1,000 ML IVC SCH (13:28)
[2020-04-03] MEDS: Ketorolac 15 MG/ML VIAL IVP SCH ×2 (15:48→21:23)
[2020-04-03] MEDS: *HR* Heparin 5,000 UNIT/ML VIAL SQ SCH (17:35)
[2020-04-03] MEDS: Acetaminophen IV 1,000 MG/100 ML INFUS..BTL IVPB SCH ×2 (17:35→23:45)
[2020-04-03] MEDS ORDERED: Ketorolac 15 MG/ML VIAL IVP SCH (18:00)
[2020-04-04] MEDS: 0.9 % Sodium Chloride 1,000 ML IVC SCH (02:36)
[2020-04-04 03:32] LABS: BUN/Creatinine Ratio 14 (6-26); Blood Urea Nitrogen 14 mg/dL (6-20); Calcium 8.9 mg/dL (8.6-10.3); Carbon Dioxide 18 mEq/L (23-29); Chloride 107 mEq/L (98-107); Glucose 120 mg/dL (70-105); Osmolality,Calculated 280 (280-300); Potassium 4.7 mEq/L (3.5-5.1); Sodium 134 mEq/L (136-145); eGFR For African Americans > 60 (> 60); eGFR For Non-African Americans > 60 (> 60)
[2020-04-04] MEDS: Ketorolac 15 MG/ML VIAL IVP SCH (03:55)
[2020-04-04] MEDS: Acetaminophen IV 1,000 MG/100 ML INFUS..BTL IVPB SCH ×3 (05:42→17:10)
[2020-04-04] MEDS: *HR* Heparin 5,000 UNIT/ML VIAL SQ SCH ×2 (05:42→17:10)
[2020-04-04] MEDS ORDERED: Orphenadrine 60 MG/2 ML VIAL IM PRN (06:47)
[2020-04-04] MEDS: Budesonide/Formoterol 160/4.5 1 PUFF INH IH SCH ×2 (07:51→20:58)
[2020-04-04] MEDS: Pantoprazole 40 MG VIAL IVP SCH (09:46)
[2020-04-04] MEDS: Ibuprofen 800 MG TABLET PO SCH ×2 (09:46→17:09)
[2020-04-04] MEDS: allopurinoL 300 MG TABLET PO SCH (09:46)
[2020-04-04] MEDS: lisinopriL 10 MG TABLET PO SCH (09:46)
[2020-04-04 10:36] LABS: Basophils # 0.1 K/mcL (0.0-0.2); Basophils % 0.7 %; Eosinophils # 0.2 K/mcL (0.0-0.6); Eosinophils % 1.8 %; Hematocrit 46.9 % (37.5-50.1); Hemoglobin 15.2 g/dL (12.9-16.9); Immature Granulocytes % 0.3 % (0-4); Lymphocytes # 1.7 K/mcL (0.6-4.6); Lymphocytes % 16.4 %; Mean Corpuscular HGB Conc 32.4 g/dL (31.6-35.5); Mean Corpuscular Volume 86.4 fL (83.0-100.0); Mean Platelet Volume 10.1 fL (9.4-12.4); Monocytes # 0.6 K/mcL (0.0-1.3); Monocytes % 6.2 %; Neutrophils # 7.7 K/mcL (1.6-8.9); Platelet Count 211 K/mcL (140-400); Red Blood Count 5.43 M/mcL (4.19-5.50); Segmented Neutrophils % 74.6 %; White Blood Count 10.4 K/mcL (4.3-11.1)
[2020-04-05] MEDS: Ibuprofen 800 MG TABLET PO SCH ×2 (03:07→11:04)
[2020-04-05] MEDS: *HR* Heparin 5,000 UNIT/ML VIAL SQ SCH (05:51)
[2020-04-05] MEDS: Budesonide/Formoterol 160/4.5 1 PUFF INH IH SCH (08:10)
[2020-04-05] MEDS: allopurinoL 300 MG TABLET PO SCH (08:42)
[2020-04-05] MEDS: lisinopriL 10 MG TABLET PO SCH (08:42)
[2020-04-05] MEDS: Pantoprazole 40 MG VIAL IVP SCH (08:43)
[2020-04-05 09:09] LABS: Basophils # 0.1 K/mcL (0.0-0.2); Basophils % 0.6 %; Eosinophils # 0.6 K/mcL (0.0-0.6); Hematocrit 48.8 % (37.5-50.1); Hemoglobin 15.9 g/dL (12.9-16.9); Immature Granulocytes % 0.4 % (0-4); Lymphocytes # 1.5 K/mcL (0.6-4.6); Lymphocytes % 13.1 %; Mean Corpuscular HGB Conc 32.6 g/dL (31.6-35.5); Mean Corpuscular Hemoglobin 28.5 pg (28.0-33.3); Mean Corpuscular Volume 87.5 fL (83.0-100.0); Mean Platelet Volume 10.1 fL (9.4-12.4); Monocytes # 1.2 K/mcL (0.0-1.3); Monocytes % 10.2 %; Neutrophils # 8.3 K/mcL (1.6-8.9); Platelet Count 225 K/mcL (140-400); Red Blood Count 5.58 M/mcL (4.19-5.50); Red Cell Distribution Width 15.4 % (11.5-14.5); Segmented Neutrophils % 70.7 %; White Blood Count 11.7 K/mcL (4.3-11.1)
[2020-04-05 09:29] LABS: BUN/Creatinine Ratio 15 (6-26); Blood Urea Nitrogen 12 mg/dL (6-20); Carbon Dioxide 21 mEq/L (23-29); Chloride 107 mEq/L (98-107); Glucose 98 mg/dL (70-105); Osmolality,Calculated 280 (280-300); Potassium 3.9 mEq/L (3.5-5.1); Sodium 135 mEq/L (136-145); eGFR For African Americans > 60 (> 60); eGFR For Non-African Americans > 60 (> 60)
[2020-04-05 10:16] VITALS: BP 122/77
== END 2020-04-05 14:23 | disposition home health service (06) | DRG 331 ==
LOC: SAMDAY 06:13 → 3ANU 11:45
PROVIDERS: ADMIT Surgery; ATTEND Surgery
PROC: GENAPPY (ICD-10-PCS; 2020-04-03 08:15)